=== PATIENT | female | born 1945 | race Caucasian/White ===

== ENCOUNTER 2019-03-26 14:29 | Outpatient (RCR) | payer MEDICARE ==
[2019-03-26] MEDS ORDERED: PEGFILGRASTIM 6 MG/0.6ML (NEULASTA) SDC SC ONE (14:45)
[2019-03-26 15:00] VITALS: BP 132/69
== END 2019-06-24 | disposition home or self-care (01) ==
LOC: SDC 14:29
PROVIDERS: ATTEND Internal Medicine Hematology & Oncology
DX: D70.1 Agranulocytosis secondary to cancer chemotherapy (principal)
CPT/HCPCS: 96372

== ENCOUNTER → 2019-03-26 | Outpatient (CLI) | payer MEDICARE ==
[~2019-03-26] MED LIST: PEGFILGRASTIM 6 MG/0.6ML (NEULASTA) SDC SC ONE
--- NOTE | 2019-03-26 16:42 | Diagnostic Imaging Report ---
INDICATION: Right arm swelling. TECHNIQUE: Grayscale, color flow, and duplex Doppler evaluation of the right upper extremity deep venous system was performed. FINDINGS: The right jugular vein as well as the right subclavian and right axillary veins are patent. Brachial vein as well as basilic and cephalic veins are widely patent. Radial and ulnar veins are patent. No thrombus is seen. No fluid collection is identified. IMPRESSION: No evidence of right upper extremity DVT. Dictated by: Dictated on workstation # [id number]
== END ==
LOC: RAD 14:00
PROVIDERS: ATTEND Internal Medicine Hematology & Oncology
DX: I80.8 Phlebitis and thrombophlebitis of other sites (principal); C50.411 Malignant neoplasm of upper-outer quadrant of right female breast; Z17.0 Estrogen receptor positive status [ER+]

== ENCOUNTER → 2020-03-23 | Outpatient (CLI) | payer MEDICARE | LOC: LABNPT 06:48 | PROVIDERS: ATTEND Internal Medicine Gastroenterology | DX: Z11.59 Encounter for screening for other viral diseases (principal); Z20.828 Contact with and (suspected) exposure to other viral communicable diseases | CPT/HCPCS: 87635 ==